=== PATIENT | female | born 1990 | race Caucasian/White ===

== ENCOUNTER 2019-11-17 18:29 | Emergency (ER) | payer MEDICAID, OTHER, SELFPAY ==
[~2019-11-17] VITALS: Ht 175.3 cm; Wt 56.8 kg
[~2019-11-17 18:29] MED LIST: ANUS2.5C2 TOP; Acetaminophen/Hydrocodone PO; COLA50CA3 PO; HYDR-3715 PO; IBUP600T26 PO; KEFL500C17 PO; MAPA500T17 PO; MILK120011 PO; MOM30SS PO; NO HOME MEDS; SENO8.6T5 PO; ZOFR4TAB14 PO; ZOFR4TAB16 PO
[2019-11-17] MEDS ORDERED: ONDANSETRON 4MG/2ML VIAL IV ONE (19:30)
[2019-11-17] MEDS ORDERED: NS 1,000 ML IV ONE (19:30)
[2019-11-17 19:40] LABS: HEMATOCRIT 41.5 % (36.0-47.0); HEMOGLOBIN 13.3 g/dl (12.0-15.5); MEAN CORPUSCULAR HEMOGLOBIN 29.4 pg (27.0-33.0); MEAN CORPUSCULAR VOLUME 91.6 fl (80.0-96.0); PLATELET COUNT, AUTOMATED 378 10^3/uL (150-450); RED BLOOD COUNT 4.53 10^6/uL (4.00-5.40); WHITE BLOOD COUNT 13.4 10^3/uL (4.0-10.0)
[2019-11-17 19:50] LABS: HCG, SERUM QUALITATIVE NEGATIVE (NEGATIVE)
[2019-11-17 20:05] LABS: ACETAMINOPHEN LEVEL < 2.0 UG/ML (10.0-30.0); ALBUMIN 3.2 GM/DL (3.2-5.2); ALT/SGPT 54 U/L (12-78); BILIRUBIN,DIRECT < 0.1 MG/DL (0.0-0.2); BILIRUBIN,TOTAL 0.2 MG/DL (0.2-1.0); BLOOD UREA NITROGEN 13 MG/DL (7-18); CALCIUM LEVEL 7.8 MG/DL (8.5-10.1); CARBON DIOXIDE LEVEL 24 MEQ/L (21-32); CHLORIDE LEVEL 107 MEQ/L (98-107); ETHYL ALCOHOL (ETHANOL) < 0.003 % (0.000-0.010); GLOMERULAR FILTRATION RATE > 60.0 (>60); GLUCOSE, FASTING 132 MG/DL (70-100); POTASSIUM SERUM 4.1 MEQ/L (3.5-5.1); SALICYLATE LEVEL < 1.7 MG/DL (5.0-30.0); SODIUM LEVEL 139 MEQ/L (136-145); TOTAL PROTEIN 6.8 GM/DL (6.4-8.2)
[2019-11-17 20:43] LABS: AMPHETAMINES LEVEL URINE POSITIVE (NEGATIVE); BARBITURATES URINE NEGATIVE (NEGATIVE); BENZODIAZEPINES URINE NEGATIVE (NEGATIVE); CANNABINOIDS URINE NEGATIVE (NEGATIVE); COCAINE METABOLITE URINE NEGATIVE (NEGATIVE); METHADONE URINE NEGATIVE (NEGATIVE); OPIATES URINE NEGATIVE (NEGATIVE); PHENCYCLIDINE URINE NEGATIVE (NEGATIVE)
[2019-11-17 21:15] VITALS: BP 119/81
== END 2019-11-17 21:30 | disposition home or self-care (01) ==
LOC: M ED 18:29
DX: T43.641A Poisoning by ecstasy, accidental (unintentional), initial encounter (principal); F16.20 Hallucinogen dependence, uncomplicated; K21.9 Gastro-esophageal reflux disease without esophagitis; F17.200 Nicotine dependence, unspecified, uncomplicated
CPT/HCPCS: 36415; 80048; 80076; 80307; 84443; 84703; 85027; 96361; 96374; 99285; G0480; J2405

== ENCOUNTER → 2022-11-02 | Outpatient (CLI) | payer MEDICAID | LOC: M OUTALCOH 08:32 | PROVIDERS: ATTEND Psychiatry & Neurology Psychiatry | DX: F10.10 Alcohol abuse, uncomplicated (principal) ==

== ENCOUNTER 2022-12-12 08:40 | Outpatient (RCR) | payer MEDICAID | END 2022-12-13 | LOC: M OUTALCOH 08:40 | PROVIDERS: ATTEND Psychiatry & Neurology Psychiatry | DX: F15.20 Other stimulant dependence, uncomplicated (principal); Z72.0 Tobacco use ==

== ENCOUNTER 2022-12-30 08:40 | Outpatient (RCR) | payer MEDICAID | END 2023-01-12 | LOC: M OUTALCOH 08:40 | PROVIDERS: ATTEND Psychiatry & Neurology Psychiatry | DX: F15.20 Other stimulant dependence, uncomplicated (principal); Z72.0 Tobacco use ==

== ENCOUNTER 2023-09-23 08:48 | Emergency (ER) | payer MEDICAID, OTHER ==
[~2023-09-23] VITALS: Ht 152.4 cm; Wt 54.5 kg
[2023-09-23 08:48] VITALS: BP 123/73; TEMP 97; O2SAT 100
== END 2023-09-23 11:10 | disposition left against medical advice (07) ==
LOC: M ED 08:48
DX: Z53.21 Procedure and treatment not carried out due to patient leaving prior to being seen by health care provider (principal)

== ENCOUNTER → 2024-09-05 | Outpatient (REF) | payer MEDICAID, OTHER ==
[~2024-09-05] MED LIST changes: +SENN-225 PO; -SENO8.6T5 PO
== END ==
LOC: M SFHCADAM 08:55
PROVIDERS: ATTEND Nurse Practitioner Family
DX: L40.0 Psoriasis vulgaris (principal)

== ENCOUNTER → 2024-09-09 | Outpatient (CLI) | payer BC, MEDICAID, OTHER ==
[2024-09-09 12:58] LABS: PLATELET COUNT, AUTOMATED 392 10^3/uL (150-450)
[2024-09-09 13:28] LABS: ALT/SGPT 12 U/L (7.0-40); AST/SGOT 17 U/L (<34); CALCIUM LEVEL 8.8 MG/DL (8.5-10.1); CARBON DIOXIDE LEVEL 26 MMOL/L (20-31); CHLORIDE LEVEL 103 MMOL/L (98-107); CREATININE FOR GFR 0.67 MG/DL (0.55-1.30); GLOMERULAR FILTRATION RATE > 90.0 (>60); HEPATITIS B SURFACE ANTIBODY NEGATIVE (POSITIVE); POTASSIUM SERUM 4.0 MMOL/L (3.5-5.1); SODIUM LEVEL 141 MMOL/L (136-145)
[2024-09-09 13:54] LABS: HIV 1&2 SCREEN NEGATIVE (NEGATIVE)
[2024-09-09 14:11] LABS: HEPATITIS C VIRUS ABY INDEX > 11.00 INDEX (<0.8)
[2024-09-10 13:23] LABS: HEPATITIS B CORE ANTIBODY IGG NON-REACTIVE (NON-REACTIVE)
[2024-09-11 19:08] LABS: HCV RNA QUANTITATION <15 NOT DETECTED IU/mL (NOT DETECTED); HCV RNA log10 <1.18 NOT DETECTED Log IU/mL (NOT DETECTED)
== END ==
LOC: M LAB 12:03
PROVIDERS: ATTEND Nurse Practitioner Family
DX: L40.0 Psoriasis vulgaris (principal)